=== PATIENT | female | born 1955 | race Caucasian/White ===

== ENCOUNTER 2022-04-24 11:13 | Inpatient (IN) | payer MEDICARE ==
[~2022-04-24] VITALS: Ht 175.3 cm; Wt 61.4 kg
[2022-04-24] MEDS ORDERED: normal saline 1000ML IV soln IVB ONE (12:15)
[2022-04-24 12:44] LABS: BASOPHILS % (AUTO) 0.6 % (0-1); EOSINOPHILS % (AUTO) 0.3 % (0-6); HEMATOCRIT 34.7 % (35.0-45.0); HEMOGLOBIN 11.7 g/dl (12.0-16.0); LYMPHOCYTES # (AUTO) 0.8 X10'3 (1.1-4.8); LYMPHOCYTES % (AUTO) 18.9 % (21-51); MEAN CORPUSCULAR HEMOGLOBIN 27.6 PG (27.0-31.0); MEAN CORPUSCULAR HGB CONC 33.8 g/dL (33.0-36.5); MEAN CORPUSCULAR VOLUME 81.5 FL (78-98); MEAN PLATELET VOLUME 8.2 FL (7.4-10.4); MONOCYTES # (AUTO) 0.5 X10'3 (0-0.9); MONOCYTES % (AUTO) 11.4 % (2-12); NEUTROPHILS # (AUTO) 2.8 X10'3 (1.8-7.7); NEUTROPHILS % (AUTO) 68.8 % (42-75); PLATELET COUNT 130 X10'3 (140-440); RED BLOOD COUNT 4.26 X10'6 (4.20-5.60); WHITE BLOOD COUNT 4.1 X10'3 (4.5-11.0)
[2022-04-24 13:20] LABS: ALANINE AMINOTRANSFERASE 23 U/L (12-78); ALBUMIN 3.2 G/DL (3.4-5.0); ALBUMIN/GLOBULIN RATIO 0.6 (1.1-1.5); ALKALINE PHOSPHATASE 48 IU/L (46-116); ANION GAP 11 (8-16); ASPARTATE AMINO TRANSFERASE 60 U/L (10-37); BLOOD UREA NITROGEN 11 MG/DL (7-18); BUN/CREATININE RATIO 15.3 (6.6-38.0); CHLORIDE 90 MMOL/L (99-107); CREATININE 0.72 MG/DL (0.40-0.90); ETHANOL < 0.010 GM/DL (0.0-0.010); GLUCOSE 87 MG/DL (70-104); SODIUM 128 MMOL/L (135-145); TOTAL CARBON DIOXIDE 26.9 MMOL/L (24-32); TOTAL PROTEIN 8.8 G/DL (6.4-8.2); eGFR 82 ML/MIN
[2022-04-24 13:29] LABS: POTASSIUM 2.7 MMOL/L (3.5-5.1)
[2022-04-24] MEDS ORDERED: potassium Cl 10 mEq/100mL bag IV ONE (13:30)
[2022-04-24] MEDS ORDERED: potassium Cl 20 mEq SR tablet PO STA (13:30)
[2022-04-24] MEDS ORDERED: ASPI-1265 PO (17:15)
[2022-04-24] MEDS ORDERED: MULT-1085 PO (17:15)
[2022-04-24] MEDS ORDERED: acetaminophen 325mg tablet PO PRN ×2 (17:40)
[2022-04-24] MEDS ORDERED: potassium Cl 40MEQ/1/2NS 520ml 520 ML IV PRN (17:40)
[2022-04-24] MEDS ORDERED: magnesium 4gm in 100ml NS 100 ML IV PRN (17:40)
[2022-04-24] MEDS ORDERED: magnesium Cl slow-release 64mg tablet PO PRN (17:40)
[2022-04-24] MEDS ORDERED: ondansetron/PF 4mg/2ml inj IV PRN (17:40)
[2022-04-24] MEDS: normal saline 1000ml 1,000 ML IV SCH (17:55)
[2022-04-24 17:58] LABS: CLARITY,URINE CLEAR (Clear); COLOR,URINE YELLOW (Yellow); GLUCOSE, URINE NEGATIVE (Neg); KETONES,URINE TRACE mg/dl (Neg); LEUKOCYTE ESTERASE ,URINE MODERATE (Neg); NITRITES, URINE NEGATIVE (Neg); OCCULT BLOOD,URINE NEGATIVE (Neg); PH,URINE 6.5 (4.8-8.0); PROTEIN,URINE TRACE mg/dl (Neg)
[2022-04-24 18:03] LABS: UA COLLECTION TYPE CLN CATCH MIDSTREAM; URINE AMPHETAMINE SCREEN NEGATIVE (Neg); URINE BARBITUATE SCREEN NEGATIVE (Neg); URINE BENZODIAZEPINES SCREEN NEGATIVE (Neg); URINE CANNABINOID SCREEN NEGATIVE (Neg); URINE COCAINE SCREEN NEGATIVE (Neg); URINE METHADONE SCREEN NEGATIVE (Neg); URINE OPIATE SCREEN NEGATIVE (Neg); URINE PHENCYCLIDINE SCREEN NEGATIVE (Neg)
[2022-04-24 18:09] LABS: BACTERIA,URINE FEW /HPF (Neg); MUCUS STRANDS NONE SEEN /LPF (Neg); RBC,URINE 0-2 /HPF (0-2); SQUAMOUS EPITHELIAL CELL,UR FEW /LPF (FEW); TRANSITIONAL EPI CELLS,URINE FEW /HPF
[2022-04-24] MEDS: morphine 2 MG/ML inj. syringe IV PRN (19:41)
[2022-04-24] MEDS: CefTRIAXone/D5W-Rocephin 1gm 50 ML IV SCH (19:45)
[2022-04-24] MEDS: K and/or MAG REPLACEMENT MC SCH ×2 (19:51→21:56)
[2022-04-24] MEDS: docusate sod 100mg capsule PO SCH (19:51)
--- NOTE | 2022-04-24 21:25 | NUR ---
Patient sleeping on right side without apparent distress.
[2022-04-24] MEDS: potassium Cl 20 mEq SR tablet PO PRN (22:00)
--- NOTE | 2022-04-24 23:30 | NUR ---
PT. TRANSFERRED TO HOSPITAL BED FOR COMFORT.
--- NOTE | 2022-04-25 03:30 | NUR ---
MOD ASSIST FOR UP TO COMMODE, VOIDED AND BACK TO BED WITH ASSIST
[2022-04-25 06:46] LABS: BASOPHILS % (AUTO) 0.6 % (0-1); EOSINOPHILS % (AUTO) 1.2 % (0-6); HEMATOCRIT 30.8 % (35.0-45.0); HEMOGLOBIN 10.3 g/dl (12.0-16.0); LYMPHOCYTES % (AUTO) 29.5 % (21-51); MEAN CORPUSCULAR HEMOGLOBIN 27.9 PG (27.0-31.0); MEAN CORPUSCULAR HGB CONC 33.5 g/dL (33.0-36.5); MEAN CORPUSCULAR VOLUME 83.2 FL (78-98); MEAN PLATELET VOLUME 8.5 FL (7.4-10.4); MONOCYTES # (AUTO) 0.6 X10'3 (0-0.9); MONOCYTES % (AUTO) 16.6 % (2-12); NEUTROPHILS # (AUTO) 1.8 X10'3 (1.8-7.7); NEUTROPHILS % (AUTO) 52.1 % (42-75); PLATELET COUNT 105 X10'3 (140-440); RED CELL DISTRIBUTION WIDTH 16.8 % (11.5-14.5); WHITE BLOOD COUNT 3.5 X10'3 (4.5-11.0)
[2022-04-25 07:07] LABS: ALBUMIN 2.6 G/DL (3.4-5.0); ANION GAP 6 (8-16); BLOOD UREA NITROGEN 9 MG/DL (7-18); BUN/CREATININE RATIO 14.1 (6.6-38.0); CHLORIDE 93 MMOL/L (99-107); CREATININE 0.64 MG/DL (0.40-0.90); GLUCOSE 93 MG/DL (70-104); MAGNESIUM 1.5 MG/DL (1.5-2.4); POTASSIUM 3.3 MMOL/L (3.5-5.1); SODIUM 124 MMOL/L (135-145); TOTAL CARBON DIOXIDE 24.6 MMOL/L (24-32); eGFR > 90 ML/MIN
[2022-04-25] MEDS: CefTRIAXone/D5W-Rocephin 1gm 50 ML IV SCH (07:33)
[2022-04-25] MEDS: potassium Cl 20 mEq SR tablet PO PRN (07:34)
[2022-04-25] MEDS: docusate sod 100mg capsule PO SCH ×2 (08:00→20:00)
--- NOTE | 2022-04-25 09:05 | NUR ---
PT SITTING UP IN BED EATING BREAKFAST.
--- NOTE | 2022-04-25 09:05 | NUR ---
FAXED MRI SCREENING FORM
[2022-04-25] MEDS: K and/or MAG REPLACEMENT MC SCH ×2 (10:25→23:35)
--- NOTE | 2022-04-25 11:22 | NUR ---
PT UP TO COMMODE, PT DOES NOT WHAT MRIS, NOTIFIED DR. MENG IN PERSON, HE WILL GO TO PT ROOM.
--- NOTE | 2022-04-25 11:33 | NUR ---
pt walked with walker for dr varner. pt will be discharged soon.
--- NOTE | 2022-04-25 12:35 | NUR ---
dr. varner wants pt sodium addressed. not to discharge yet.
--- NOTE | 2022-04-25 14:23 | NUR ---
care assumed from stephen barr
[2022-04-25 15:03] LABS: ALBUMIN 2.5 G/DL (3.4-5.0); ANION GAP 5 (8-16); BLOOD UREA NITROGEN 11 MG/DL (7-18); CALCIUM 8.2 MG/DL (8.5-10.1); CHLORIDE 94 MMOL/L (99-107); CREATININE 0.61 MG/DL (0.40-0.90); GLUCOSE 107 MG/DL (70-104); POTASSIUM 3.7 MMOL/L (3.5-5.1); SODIUM 124 MMOL/L (135-145); TOTAL CARBON DIOXIDE 25.4 MMOL/L (24-32); eGFR > 90 ML/MIN
[2022-04-25] MEDS ORDERED: pneumococcal 23-VAL P-sac vacc 25 mcg/0.5ml vial IMVAC ONE (20:00)
[2022-04-25 22:01] VITALS: BP 119/71
[2022-04-25] MEDS: normal saline 1000ml 1,000 ML IV SCH (22:20)
[2022-04-26] MEDS: morphine 2 MG/ML inj. syringe IV PRN (00:22)
[2022-04-26 06:00] VITALS: BP 128/82
--- NOTE | 2022-04-26 06:16 | NUR ---
Patient in room [facility]. I have received report from Domonique/ Chrissy and had the opportunity to ask questions and assume patient care.
[2022-04-26 07:18] LABS: BASOPHILS % (AUTO) 0.5 % (0-1); EOSINOPHILS # (AUTO) 0.1 X10'3 (0-0.9); EOSINOPHILS % (AUTO) 2.3 % (0-6); HEMATOCRIT 30.7 % (35.0-45.0); HEMOGLOBIN 9.9 g/dl (12.0-16.0); LYMPHOCYTES # (AUTO) 1.2 X10'3 (1.1-4.8); LYMPHOCYTES % (AUTO) 34.5 % (21-51); MEAN CORPUSCULAR HEMOGLOBIN 27.5 PG (27.0-31.0); MEAN CORPUSCULAR HGB CONC 32.4 g/dL (33.0-36.5); MEAN CORPUSCULAR VOLUME 84.8 FL (78-98); MEAN PLATELET VOLUME 9.2 FL (7.4-10.4); MONOCYTES # (AUTO) 0.7 X10'3 (0-0.9); MONOCYTES % (AUTO) 19.7 % (2-12); NEUTROPHILS # (AUTO) 1.5 X10'3 (1.8-7.7); PLATELET COUNT 98 X10'3 (140-440); RED BLOOD COUNT 3.61 X10'6 (4.20-5.60); RED CELL DISTRIBUTION WIDTH 17.3 % (11.5-14.5); WHITE BLOOD COUNT 3.4 X10'3 (4.5-11.0)
[2022-04-26 07:19] LABS: ALBUMIN 2.4 G/DL (3.4-5.0); ANION GAP 9 (8-16); BLOOD UREA NITROGEN 9 MG/DL (7-18); BUN/CREATININE RATIO 16.4 (6.6-38.0); CALCIUM 8.1 MG/DL (8.5-10.1); CHLORIDE 95 MMOL/L (99-107); CREATININE 0.55 MG/DL (0.40-0.90); GLUCOSE 91 MG/DL (70-104); MAGNESIUM 1.5 MG/DL (1.5-2.4); POTASSIUM 3.7 MMOL/L (3.5-5.1); SODIUM 125 MMOL/L (135-145); TOTAL CARBON DIOXIDE 21.5 MMOL/L (24-32); eGFR > 90 ML/MIN
--- NOTE | 2022-04-26 07:20 | NUR ---
technology sales specialist called to alert that HR was in 140's, pt. was up to bathroom at this time.
[2022-04-26] MEDS: normal saline 1000ml 1,000 ML IV SCH ×4 (07:38→20:41)
[2022-04-26] MEDS: aspirin 81mg tab.chew PO SCH (07:38)
[2022-04-26] MEDS: multivitamins, therapeutics tablet PO SCH (07:38)
[2022-04-26] MEDS: CefTRIAXone/D5W-Rocephin 1gm 50 ML IV SCH (07:38)
[2022-04-26] MEDS: docusate sod 100mg capsule PO SCH ×2 (07:49→20:00)
[2022-04-26] MEDS: K and/or MAG REPLACEMENT MC SCH ×2 (08:00→20:00)
[2022-04-26 11:00] VITALS: BP 129/75
[2022-04-26 12:07] LABS: TOTAL CELLS COUNTED 100
[2022-04-26 12:09] LABS: ACANTHOCYTES FEW; ANISOCYTOSIS 1+; BURR CELLS FEW; ELLIPTOCYTES FEW; PLATELET ESTIMATE DECREASED
[2022-04-26 14:30] LABS: ALBUMIN 2.4 G/DL (3.4-5.0); ANION GAP 6 (8-16); BLOOD UREA NITROGEN 9 MG/DL (7-18); BUN/CREATININE RATIO 15.3 (6.6-38.0); CALCIUM 7.8 MG/DL (8.5-10.1); CHLORIDE 98 MMOL/L (99-107); CREATININE 0.59 MG/DL (0.40-0.90); GLUCOSE 80 MG/DL (70-104); POTASSIUM 3.5 MMOL/L (3.5-5.1); SODIUM 129 MMOL/L (135-145); TOTAL CARBON DIOXIDE 24.9 MMOL/L (24-32); eGFR > 90 ML/MIN
[2022-04-26 18:00] VITALS: BP 135/89
--- NOTE | 2022-04-26 19:07 | NUR ---
Problems reprioritized. Patient report given, questions answered & plan of care reviewed with Domonique LOMELI.
[2022-04-26 20:50] VITALS: BP 135/89
[2022-04-26 23:07] VITALS: BP 128/84
[2022-04-27] MEDS: normal saline 1000ml 1,000 ML IV SCH ×2 (00:37→07:40)
[2022-04-27 06:00] VITALS: BP 136/85
[2022-04-27 06:16] LABS: BASOPHILS % (AUTO) 0.5 % (0-1); EOSINOPHILS # (AUTO) 0.1 X10'3 (0-0.9); HEMATOCRIT 29.9 % (35.0-45.0); LYMPHOCYTES # (AUTO) 1.2 X10'3 (1.1-4.8); LYMPHOCYTES % (AUTO) 28.7 % (21-51); MEAN CORPUSCULAR HGB CONC 33.3 g/dL (33.0-36.5); MEAN CORPUSCULAR VOLUME 84.1 FL (78-98); MEAN PLATELET VOLUME 9.3 FL (7.4-10.4); MONOCYTES # (AUTO) 0.7 X10'3 (0-0.9); MONOCYTES % (AUTO) 17.1 % (2-12); NEUTROPHILS # (AUTO) 2.1 X10'3 (1.8-7.7); NEUTROPHILS % (AUTO) 50.7 % (42-75); PLATELET COUNT 129 X10'3 (140-440); RED BLOOD COUNT 3.56 X10'6 (4.20-5.60); RED CELL DISTRIBUTION WIDTH 17.1 % (11.5-14.5); WHITE BLOOD COUNT 4.2 X10'3 (4.5-11.0)
--- NOTE | 2022-04-27 06:24 | NUR ---
Patient in room [facility]. I have received report from Domonique RN and had the opportunity to ask questions and assume patient care.
[2022-04-27 06:36] LABS: ALBUMIN 2.6 G/DL (3.4-5.0); ANION GAP 8 (8-16); BLOOD UREA NITROGEN 6 MG/DL (7-18); CALCIUM 8.2 MG/DL (8.5-10.1); CHLORIDE 95 MMOL/L (99-107); GLUCOSE 97 MG/DL (70-104); MAGNESIUM 1.5 MG/DL (1.5-2.4); SODIUM 125 MMOL/L (135-145); TOTAL CARBON DIOXIDE 22.1 MMOL/L (24-32); eGFR > 90 ML/MIN
--- NOTE | 2022-04-27 06:55 | NUR ---
Lab alerted of critical potassium level 3.0 PAGER ID: [phone] MESSAGE: [phone] El[address] [facility] At [facility] Potassium K+ level 3.0. Thank you! Addendum: 04/27/22 at 0658 by Eloisa eKyes RN PAGER ID: [phone] MESSAGE: [phone]. [address] [facility] Potassium K+ 3.0. Thank you
[2022-04-27] MEDS ORDERED: pneumococcal 23-VAL P-sac vacc 25 mcg/0.5ml vial IMVAC ONE (07:10)
[2022-04-27] MEDS: aspirin 81mg tab.chew PO SCH (07:20)
[2022-04-27] MEDS: multivitamins, therapeutics tablet PO SCH (07:20)
[2022-04-27] MEDS: CefTRIAXone/D5W-Rocephin 1gm 50 ML IV SCH (07:20)
[2022-04-27] MEDS: potassium Cl 20 mEq SR tablet PO PRN ×2 (07:21→14:54)
[2022-04-27] MEDS: docusate sod 100mg capsule PO SCH (07:28)
[2022-04-27] MEDS: K and/or MAG REPLACEMENT MC SCH (08:00)
--- NOTE | 2022-04-27 08:23 | NUR ---
Paged PAGER ID: [phone] MESSAGE: [phone] Eloisa- Pt. [address]B Would like to receive Flu vaccine and Covid-19 vaccine before DC today. Would you like an order for them?
[2022-04-27] MEDS: sodium chloride 1gm tablet PO SCH ×2 (09:25→14:54)
[2022-04-27 10:00] VITALS: BP 134/77
[2022-04-27] MEDS ORDERED: potassium Cl 20 mEq SR tablet PO ONE (11:00)
[2022-04-27] MEDS ORDERED: COVID-19 VACC, MRNA(PFIZER)/PF--BNT162b2 syringe IMVAC ONE (12:40)
[2022-04-27] MEDS ORDERED: sodium chloride 1gm tablet PO SCH (13:00)
[2022-04-27] MEDS ORDERED: COVID-19 VAC, TRIS(PFIZER)/PF 30 MCG/0.3 ML VIAL IMVAC ONE (13:15)
[2022-04-27] MEDS ORDERED: FLU VACC QS2022-23(6MOS UP)/PF 60 MCG/0.5 ML SYRINGE IMVAC ONE (14:50)
[2022-04-27 14:52] LABS: ALBUMIN 2.4 G/DL (3.4-5.0); ANION GAP 6 (8-16); BLOOD UREA NITROGEN 8 MG/DL (7-18); BUN/CREATININE RATIO 10.4 (6.6-38.0); CALCIUM 8.2 MG/DL (8.5-10.1); CHLORIDE 97 MMOL/L (99-107); CREATININE 0.77 MG/DL (0.40-0.90); GLUCOSE 85 MG/DL (70-104); POTASSIUM 4.3 MMOL/L (3.5-5.1); SODIUM 128 MMOL/L (135-145); TOTAL CARBON DIOXIDE 25.5 MMOL/L (24-32); eGFR 75 ML/MIN
[2022-04-27] MEDS ORDERED: CEPH500C2 PO (15:20)
[2022-04-27] MEDS ORDERED: POTA-197 PO (15:20)
[2022-04-27] MEDS ORDERED: SODI1TAB2 PO (15:20)
[2022-04-27 17:21] VITALS: BP 160/85
--- NOTE | 2022-04-27 18:03 | NUR ---
Pt. IV discontinued cannula intact, tele discontinued, radiotelegraph operator servicer notified. Discharged home with all personal belongings via wheel chair to cab accompanied by aid staff. Discharge instructions given, pt had opportunity to ask questions.
--- NOTE | 2022-05-02 14:42 | NUR ---
Case Management DC follow up: Spoke with Patient via telephone.S/P: Patient Reports:,Denies: Acute/continuous CP, emergent SOB, resp distress, dyspnea, N/V, seizure activity, confusion,vertigo, muscle cramping, syncope episodes, orthostatic hypotension; however complains of weakness, and fatigue.Verbalizes she went to pharmacy to pharmacy picking technician her prescriptions; however, pharmacy never received her prescriptions.Verbalizes she has called other pharmacies and could not find any with her prescription orders.I telephoned her prescriptions to [facility] on [facility]. Denies: MCCLAIN, blurry vision, s/s of stroke/BE-FAST, hematuria, retention; however has burning sensation upon urination.Denies : abdominal pain/distension, hematochezia, melena, unexplained bruising, bleeding, fever, chills.Verbalizes understanding of new Rx:, why prescribed; continues/resumes current medications as ordered. Verbalizes understanding of s/s that warrant a 9-11/ER visit for further evaluation. Verbalizes understanding of need to follow up with PCP and/or Urgent Care to have blood drawn for BMP, potassium and sodium levels;and have blood pressure checked.Verbalizes the nursing staff were fine except one nurse whom she found to be very rude.Needs met, questions/concerns addressed at DC; no further questions/concerns regarding recent hospital stay and/or DC status at this time.
== END 2022-04-27 17:59 | disposition home or self-care (01) | DRG 690 ==
LOC: ER 11:13 → ED HOLD 14:41 → EDBEDREQSVC 04-25 20:21 → SUR 3N 04-25 21:56
PROVIDERS: ADMIT Internal Medicine; ATTEND Family Medicine
PROC: XW023U6 Introduction of COVID-19 Vaccine into Muscle, Percutaneous Approach, New Technology Group 6 (ICD-10-PCS; principal; 2022-04-27)
PROC: 3E02340 Introduction of Influenza Vaccine into Muscle, Percutaneous Approach (ICD-10-PCS; 2022-04-27)
DX: N39.0 Urinary tract infection, site not specified (principal); E87.1 Hypo-osmolality and hyponatremia; E87.6 Hypokalemia; R70.0 Elevated erythrocyte sedimentation rate; B96.20 Unspecified Escherichia coli [E. coli] as the cause of diseases classified elsewhere; Z87.891 Personal history of nicotine dependence; Z91.81 History of falling; Z23 Encounter for immunization; Z88.5 Allergy status to narcotic agent; Z79.899 Other long term (current) drug therapy
CPT/HCPCS: 36415; 70450; 73564; 80048; 80053; 80305; 80320; 81001; 82607; 83735; 84132; 84443; 84446; 85007; 85025; 85651; 86592; 87077; 87081; 87088; 87186; 90686; 90732; 96361; 96365; 99285; A6209; A6213; A6449; G0378; J0696; J2270; J3480; J7030

== ENCOUNTER 2023-12-18 10:19 | Emergency (ER) | payer MEDICARE, MEDICAID ==
[~2023-12-18] VITALS: Ht 172.7 cm; Wt 53.4 kg
[~2023-12-18 10:19] MED LIST: ASPI-1265 PO; MULT-1085 PO; POTA-197 PO; SODI1TAB2 PO
[2023-12-18 10:52] VITALS: TEMP 97.8
[2023-12-18 11:58] LABS: BILIRUBIN,URINE NEGATIVE (Neg); CLARITY,URINE CLEAR (Clear); COLOR,URINE YELLOW (Yellow); GLUCOSE, URINE NEGATIVE (Neg); KETONES,URINE >=80 mg/dl (Neg); LEUKOCYTE ESTERASE ,URINE NEGATIVE (Neg); NITRITES, URINE NEGATIVE (Neg); OCCULT BLOOD,URINE TRACE-INTACT (Neg); PROTEIN,URINE TRACE mg/dl (Neg); UROBILINOGEN,URINE 0.2 E.U/dL (0.2-1.0)
[2023-12-18 11:59] LABS: UA COLLECTION TYPE CLN CATCH MIDSTREAM
[2023-12-18 12:04] LABS: HYALINE CASTS 0-3 /LPF (NEGATIVE)
[2023-12-18 12:05] LABS: SQUAMOUS EPITHELIAL CELL,UR FEW /LPF (FEW)
[2023-12-18 12:06] LABS: BACTERIA,URINE FEW /HPF (Neg)
[2023-12-18 12:07] LABS: RBC,URINE 0-2 /HPF (0-2); WBC,URINE 0-4 /HPF (0-4)
[2023-12-18] MEDS: ondansetron/PF 4mg/2ml inj IV ONE (12:50)
[2023-12-18 12:59] LABS: BASOPHILS % (AUTO) 0.3 % (0-1); EOSINOPHILS % (AUTO) 0 % (0-6); HEMATOCRIT 33.8 % (35.0-45.0); HEMOGLOBIN 10.9 g/dl (12.0-16.0); LYMPHOCYTES % (AUTO) 10.9 % (21-51); MEAN CORPUSCULAR HEMOGLOBIN 26.4 PG (27.0-31.0); MEAN CORPUSCULAR HGB CONC 32.2 g/dL (33.0-36.5); MEAN PLATELET VOLUME 8.6 FL (7.4-10.4); MONOCYTES # (AUTO) 0.3 X10'3 (0-0.9); MONOCYTES % (AUTO) 3.9 % (2-12); NEUTROPHILS # (AUTO) 7.7 X10'3 (1.8-7.7); NEUTROPHILS % (AUTO) 84.9 % (42-75); PLATELET COUNT 228 X10'3 (140-440); RED BLOOD COUNT 4.11 X10'6 (4.20-5.60); RED CELL DISTRIBUTION WIDTH 15.6 % (11.5-14.5); WHITE BLOOD COUNT 9.1 X10'3 (4.5-11.0)
[2023-12-18 13:36] LABS: ALANINE AMINOTRANSFERASE 50 U/L (12-78); ALBUMIN 3.7 G/DL (3.4-5.0); ALBUMIN/GLOBULIN RATIO 0.7 (1.1-1.5); ALKALINE PHOSPHATASE 74 IU/L (46-116); ANION GAP 25 (8-16); ASPARTATE AMINO TRANSFERASE 80 U/L (10-37); BILIRUBIN,TOTAL 0.9 MG/DL (0.1-1.0); BLOOD UREA NITROGEN 9 MG/DL (7-18); BUN/CREATININE RATIO 12.9 (10.0-20.0); CALCIUM 9.1 MG/DL (8.5-10.1); CHLORIDE 97 MMOL/L (99-107); ETHANOL 58 MG/DL (<10); GLUCOSE 60 MG/DL (70-104); POTASSIUM 3.7 MMOL/L (3.5-5.1); SALICYLATE 2.1 MG/DL (4.0-20.0); SODIUM 137 MMOL/L (135-145); TOTAL CARBON DIOXIDE 15.5 MMOL/L (24-32); TOTAL PROTEIN 9.1 G/DL (6.4-8.2); eCRCL 67 ML/MIN; eGFR 84 ML/MIN
[2023-12-18 13:39] LABS: ACETAMINOPHEN < 2.0 UG/ML (10-30)
[2023-12-18 17:18] VITALS: BP 112/76; PULSE 109; RESP 18; O2SAT 96
[2023-12-18 18:29] LABS: URINE AMPHETAMINE SCREEN NEGATIVE (Neg); URINE BARBITUATE SCREEN NEGATIVE (Neg); URINE BENZODIAZEPINES SCREEN NEGATIVE (Neg); URINE CANNABINOID SCREEN NEGATIVE (Neg); URINE COCAINE SCREEN NEGATIVE (Neg); URINE METHADONE SCREEN NEGATIVE (Neg); URINE OPIATE SCREEN NEGATIVE (Neg); URINE PHENCYCLIDINE SCREEN NEGATIVE (Neg)
[2023-12-18 18:44] LABS: URINE HCG POSITIVE (NEG)
[2023-12-18 19:24] LABS: BETA HCG,QUANTITATIVE 2 mIU/ml
== END 2023-12-18 17:20 | disposition home or self-care (01) ==
LOC: ER 10:20
DX: S80.12XA Contusion of left lower leg, initial encounter (principal); R22.0 Localized swelling, mass and lump, head; R10.2 Pelvic and perineal pain; F10.129 Alcohol abuse with intoxication, unspecified; Z88.8 Allergy status to other drugs, medicaments and biological substances; Z79.82 Long term (current) use of aspirin; Z79.899 Other long term (current) drug therapy; W18.39XA Other fall on same level, initial encounter; Y93.89 Activity, other specified; Y92.89 Other specified places as the place of occurrence of the external cause; Y99.8 Other external cause status
CPT/HCPCS: 36415; 70450; 73060; 73590; 80053; 80305; 80329; 81001; 84702; 85025; 96374; 99285; G0480; J2405; J7030; 80320; 81025